=== PATIENT | female | born 2000 | race Two or more races ===

== ENCOUNTER 2021-06-08 08:36 | Emergency (ER) | payer OTHER ==
[~2021-06-08] VITALS: Ht 154.9 cm; Wt 101.6 kg
[2021-06-08 08:56] VITALS: BP 119/67
[2021-06-08 09:29] LABS: Urine Bacteria FEW /hpf (None Seen); Urine Blood TRACE /uL (Negative); Urine Specific Gravity 1.009 (1.001-1.035); Urine WBC 2 /hpf (0 - 5)
[2021-06-08] MEDS ORDERED: DICY20TA PO (09:43)
[2021-06-08] MEDS ORDERED: DICY10CA PO (09:43)
[2021-06-08] MEDS ORDERED: DOCU-94 PO (09:43)
== END 2021-06-08 09:50 | disposition home or self-care (01) ==
LOC: ER 08:36
DX: K59.00 Constipation, unspecified (principal)
CPT/HCPCS: 74176; 81001

== ENCOUNTER → 2022-12-23 | Emergency (ER) | payer MEDICAID, OTHER ==
[~2022-12-23] VITALS: Ht 157.5 cm; Wt 101.9 kg
[~2022-12-23] MED LIST: DICY20TA PO; DOCU-94 PO; ONDANSETRON ODT 4 MG TAB PO ONE; PANT40TA2 PO; PANTOPRAZOLE 40 MG TAB PO ONE; ZOFR4T PO
[2022-12-23 07:19] LABS: Basophils # (auto) 0 10 ^3/uL (0-0.2); Basophils % (auto) 0.3 % (0.0-2.0); Eosinophils # (auto) 0 10 ^3/uL (0-0.8); Eosinophils % (auto) 0.2 % (0.0-7.0); Hematocrit 39.7 % (36.0-46.0); Hemoglobin 13.3 g/dL (12.2-16.2); Lymphocytes # (auto) 1.3 10 ^3/uL (0.4-5.4); Lymphocytes % (auto) 14.3 % (10.0-50.0); Mean Corpuscular Hemoglobin 28.6 pg (28.0-32.0); Mean Corpuscular Hgb Conc. 33.5 g/dL (32.0-36.0); Mean Corpuscular Volume 85.4 fL (80.0-100.0); Monocytes # (auto) 0.4 10 ^3/uL (0-1.3); Monocytes % (auto) 4.5 % (0.0-12.0); Neutrophils # (auto) 7.3 10 ^3/uL (1.6-8.6); Neutrophils % (auto) 80.7 % (37.0-80.0); Red Blood Cells 4.64 10^6/uL (4.0-5.20); Red Cell Distribution Width 13.3 % (11.8-14.3); White Blood Cell 9.1 10^3/uL (4.4-10.8)
[2022-12-23 07:22] LABS: Urine Bacteria FEW /hpf (None Seen); Urine Blood 1+ /uL (Negative); Urine Mucus FEW (None Seen); Urine Specific Gravity 1.021 (1.001-1.035); Urine WBC 1 /hpf (0 - 5)
[2022-12-23 07:41] LABS: Calcium 9.1 mg/dL (8.5-10.1); Potassium 3.7 mmol/L (3.5-5.1)
[2022-12-23 07:45] LABS: BUN/Creatinine Ratio 15.3 (10.0-20.0); Bilirubin, Total 0.3 mg/dL (0.2-1.0); Total Protein 7.9 g/dL (6.4-8.2)
[2022-12-23 08:41] VITALS: PULSE 97; RESP 18
[2022-12-23 08:43] VITALS: BP 121/86; PULSE 97; RESP 18; TEMP 98; O2SAT 98
== END | disposition home or self-care (01) ==
LOC: ER 06:04
DX: K29.00 Acute gastritis without bleeding (principal)
CPT/HCPCS: 36415; 76705; 80053; 81001; 83690; 85025; 99284; Q0162